=== PATIENT | female | born 1930 | race Caucasian/White ===

== ENCOUNTER 2019-08-30 06:34 | Inpatient (IN) | payer MEDICARE ==
[~2019-08-30] VITALS: Ht 165.1 cm; Wt 74.8 kg
--- NOTE | 2019-08-30 06:39 | Emergency Room Report ---
History of Present Illness General Chief Complaint: Behavioral Complaint Source: Patient Present Illness HPI Patient was brought by paramedics. She was upset because her son had been drinking alcohol. She complained to them of chest pain. A 12-lead was performed in the field. She has a history of atrial fibrillation. The patient is denying chest pain at this time. She does complain of back pain. She says this is a chronic problem. It is aching. She will not quantify how severe the pain is. She seems to have improvement with movement. She denies any extremity numbness. Patient is quite anxious and concerned about her son. She wants to immediately make a phone call to have someone check on him because he is drinking alcohol. She states this is a chronic and recurring problem -her son's alcohol abuse. Apparently she was admitted for 1 day at [facility] last week. She said it was a similar problem. She is uncertain of what they found. Patient has a history of hypertension, high cholesterol and atrial fibrillation. No fevers, chills, sore throat, palpitations, nausea, vomiting, diarrhea, dysuria, abdominal pain, shortness of breath, rashes, visual changes, dizziness , headache. Allergies: Coded Allergies: No Known Allergies (Unverified , 08/30/19) COVID-19 Screening Contact w/high risk pt: No Experienced COVID-19 symptoms?: No COVID-19 Testing performed PRODUCT MARKETING ANALYST: No Patient History Past Medical History: see triage record Social History: Denies: smoking Social History Narrative lives with son Reviewed Nursing Documentation: PMH: Agreed; PSxH: Agreed Nursing Documentation-PM Past Medical History: No History, Except For Hx Hypertension: Yes Review of Systems All Other Systems: negative except mentioned in HPI Physical Exam Vital Signs Date Time Temp Pulse Resp B/P (MAP) Pulse Ox O2 Delivery O2 Flow Rate FiO2 08/30/19 06:27 95.0 80 20 184/86 (118) 97 Room Air Sp02 EP Interpretation: reviewed, normal General Appearance: alert, non-toxic, mild distress - Anxious and agitated Head: normocephalic Eyes: bilateral eye normal inspection, bilateral eye PERRL, bilateral eye EOMI ENT: moist mucus membranes Neck: supple Respiratory: chest non-tender, lungs clear, normal breath sounds Cardiovascular #1: regular rate, rhythm, edema - Bilateral lower extremities trace Cardiovascular #2: 2+ radial (R) Gastrointestinal: normal inspection, normal bowel sounds, non tender, no mass, non-distended Musculoskeletal: normal range of motion, no calf tenderness Neurologic: alert, oriented x3, grossly normal Psychiatric: anxious - And slightly agitated Skin: warm/dry, other - Erythema and venous disease lower extremities bilaterally Medical Decision Making Diagnostic Impression: Primary Impression: Chest pain Qualified Codes: R07.89 - Other chest pain Additional Impression: Behavioral change ER Course Patient presents with chest pain and agitation from social situation. Differential includes acute myocardial infarction, unstable angina, anxiety, GERD amongst others. Patient evaluated EKG, chest x-ray and labs. Patient treated with a small dose of Ativan. Patient placed on administrative and program specialist. EKG without injury. Chest x-ray senile chest. No infiltrates. Normal white count. CMP essentially normal with minimally low sodium. Urinalysis clear. Attempting to determine what meds she is on for further treatment. 834 Metoprolol is held as her heart rate is 55. She does take aspirin. Lovenox is held at this time also. Patient improved with treatment with a small dose of Ativan. Sleepy. Complex presentation in patient with possible comorbidities merits observation for possible coronary syndrome. Consider social service consult regarding safety at home. Last Vital Signs Date Time Temp Pulse Resp B/P (MAP) Pulse Ox O2 Delivery O2 Flow Rate FiO2 08/30/19 06:50 80 20 Room Air 08/30/19 06:50 97.3 157/71 97 EKG Diagnostic Results Rate: normal Rhythm: NSR ST Segments: no acute changes - Left atrial enlargement and left ventricular hypertrophy Rhythm Strip Diag. Results EP Interpretation: yes Rhythm: NSR, no PVC's, no ectopy Chest X-Ray Diagnostic Results Chest X-Ray Diagnostic Results : Chest X-Ray Ordered: Yes # of Views/Limited/Complete: 1 View Indication: Chest Pain EP Interpretation: Yes Interpretation: no effusion, no pneumothorax, other - Increase sterling, cardiomegaly and axillary dissection clips Impression: Other Electronically Signed by: Electronically signed by Mark Tavarez MD Last Vital Signs Date Time Temp Pulse Resp B/P (MAP) Pulse Ox O2 Delivery O2 Flow Rate FiO2 08/30/19 16:00 96.9 68 18 124/79 (94) 98 08/30/19 12:22 Room Air Status: improved Disposition: PLACE IN OBSERVATION Condition: Serious Mark Tavarez MD 15, 2020 06:39
[2019-08-30] MEDS ORDERED: LORazepam Inj 2mg/ml 1ml IV ONE (06:45)
[2019-08-30 06:50] VITALS: BP 157/71
[2019-08-30 07:07] LABS: INR 0.9 (0.9-1.1)
[2019-08-30 07:08] LABS: BASOPHILS % (AUTO) 1.5 % (0.0-2.0); EOSINOPHILS % (AUTO) 4.9 % (0.0-3.0); HEMATOCRIT 43.6 % (37.0-47.0); HEMOGLOBIN 14.5 G/DL (12.0-16.0); LYMPHOCYTES % (AUTO) 41.6 % (20.0-45.0); MEAN CORPUSCULAR VOLUME 96 FL (80-99); MONOCYTES % (AUTO) 12.8 % (1.0-10.0); NEUTROPHILS % (AUTO) 39.3 % (45.0-75.0); PLATELET COUNT 205 K/UL (150-450); RED BLOOD COUNT 4.55 M/UL (4.20-5.40); RED CELL DISTRIBUTION WIDTH 11.7 % (11.6-14.8); WHITE BLOOD COUNT 6.7 K/UL (4.8-10.8)
[2019-08-30 07:09] LABS: ANION GAP 8 mmol/L (5-15); BLOOD UREA NITROGEN 18 mg/dL (7-18); CARBON DIOXIDE 25 MMOL/L (21-32); CHLORIDE 99 MMOL/L (98-107); POTASSIUM 4.1 MMOL/L (3.5-5.1); SODIUM 132 MMOL/L (136-145)
[2019-08-30 07:20] LABS: ALANINE AMINOTRANSFERASE 22 U/L (12-78); ALBUMIN 3.4 G/DL (3.4-5.0); ALKALINE PHOSPHATASE 45 U/L (46-116); ASPARTATE AMINO TRANSFERASE 17 U/L (15-37); BILIRUBIN,TOTAL 0.4 MG/DL (0.2-1.0); CREATINE KINASE 29 U/L (26-308)
[2019-08-30 08:28] LABS: APPEARANCE,URINE CLEAR; BILIRUBIN, URINE NEGATIVE (NEGATIVE); COLOR,URINE PALE YELLOW; GLUCOSE, URINE (UA) NEGATIVE (NEGATIVE); KETONES,URINE NEGATIVE (NEGATIVE); LEUKOCYTE ESTERASE ,URINE NEGATIVE (NEGATIVE); NITRITE,URINE NEGATIVE (NEGATIVE); PH,URINE 5 (4.5-8.0); PROTEIN,URINE NEGATIVE (NEGATIVE); UROBILINOGEN,URINE NORMAL MG/DL (0.0-1.0)
[2019-08-30] MEDS ORDERED: ASPIRIN81 MG ORAL (08:40)
[2019-08-30] MEDS ORDERED: LEVOTHYROXINE75 MCG ORAL (08:40)
[2019-08-30] MEDS ORDERED: HYDRALAZINE HCL10 MG ORAL (08:40)
[2019-08-30] MEDS ORDERED: METOPROLOL TART25 MG ORAL (08:40)
[2019-08-30] MEDS ORDERED: statin PO (08:40)
[2019-08-30 08:45] VITALS: BP 161/75
--- NOTE | 2019-08-30 14:27 | Diagnostic Imaging Report ---
Indication: Chest pain Technique: One view of the chest Comparison: none Findings: Mild interstitial prominence is probably on the basis of senescent changes. Surgical clips are seen in the right axilla and left lower lateral chest. No focal infiltrates. The heart size is normal. The pleural spaces are grossly clear. Impression: No definite acute process
[2019-08-30 16:00] VITALS: BP 124/79
[2019-08-30 20:00] VITALS: BP 158/80
[2019-08-30] MEDS ORDERED: HYDROcodone/Acetamin 5/325 tab ORAL PRN (20:45)
[2019-08-30] MEDS: Heparin 5000 units/ml inj SUBQ SCH (21:12)
[2019-08-31] VITALS: BP 142/77
[2019-08-31 04:00] VITALS: BP 161/73
[2019-08-31] MEDS ORDERED: Levothyroxine 25mcg tab ORAL SCH (06:30)
--- NOTE | 2019-08-31 06:45 | Consultation ---
DATE OF CONSULTATION: 08/30/2019 CARDIOLOGY CONSULTATION CONSULTING PHYSICIAN: Mark Henry M.D. REASON FOR ADMISSION: Chest pain in the setting of known coronary artery disease. HISTORY OF PRESENT ILLNESS: This is an 88-year-old white female. She lives at home with her son. She states that he has had significant problems of late due to alcoholism and marital difficulties with divorce. He was drunk and this morning, which led her to feel quite stress and developed episodes of chest pain. She came to the emergency room for evaluation. In the emergency room, she was noted to have a normal troponin level and her electrocardiogram, which I have reviewed revealed sinus rhythm with minimal voltage for left ventricular hypertrophy and nonspecific ST changes. The patient states that other than the events today, she has been in her usual state of good health with no chest pain. PAST MEDICAL HISTORY: Includes coronary artery disease with history of coronary stents, [id number] carotid stenosis bilaterally, history of nonsustained supraventricular tachyarrhythmias, degenerative aortic valve disease with mild sclerosis, mild pulmonary hypertension, vitamin D deficiency, hypothyroidism, hypertension, degenerative disk disease, osteoarthritis, hyperlipidemia, breast cancer with left mastectomy. MEDICATIONS: Reviewed and reconciled. ALLERGIES: Include amlodipine. SOCIAL HISTORY: Negative for smoking, alcohol, or substance abuse. REVIEW OF SYSTEMS: Outpatient studies in 2018 included a myocardial perfusion scan revealing less than 10% likelihood of flow-limiting disease with normal ejection fraction. Echocardiogram revealed normal ejection fraction fraction, aortic sclerosis, and mild pulmonary hypertension with mild tricuspid regurgitation. patch revealed less than 2 minutes of atrial arrhythmias. Carotid duplex revealed less than 50% stenosis bilaterally. CT angio revealed in 2017 revealed less than 50% stenosis of coronary arteries with high calcium score. PHYSICAL EXAMINATION: VITAL SIGNS: Blood pressure 184/86, heart rate 80, respiratory rate 20 in the emergency room. Subsequent blood pressure 158/68, heart rate 81, respiratory rate 20. HEENT: Conjunctivae are pink. Oropharynx clear. NECK: Supple. No bruits. No jugular venous distention. No thyromegaly. LUNGS: Clear. CARDIAC: Left breast mastectomy scar clean. CARDIAC: Regular rhythm and rate. Normal S1, S2 with a 1/6 systolic murmur at the lower left sternal border. ABDOMEN: Soft and nontender. EXTREMITIES: Without edema. NEUROLOGIC: Nonfocal. LABORATORY AND DIAGNOSTIC DATA: White count 6.7, hemoglobin 14.5. Urinalysis, no active sediment. Sodium 132, potassium 4.1, bicarb 25, BUN 18, creatinine 1, troponin 0, and pro-natriuretic peptide 576. Chest x-ray with no acute process. IMPRESSION: 1. Anginal episode precipitated by stress. 2. History of coronary stent with no signs of flow-limiting coronary disease based on [address] angiogram of the coronaries. 3. Hypertensive heart disease with elevated blood pressure. 4. Acute on chronic diastolic congestive heart failure. 5. History of hyperlipidemia. 6. History of hypothyroidism. 7. Degenerative aortic valve disease. 8. Mild pulmonary hypertension. PLAN: 1. Cardiac monitoring. 2. Serial troponin levels. 3. Titrate antihypertensives and antianginal regimen. 4. Continue anti-platelet therapy and statin drugs. 5. Check thyroid function. 6. Medical management unless clinical parameters deteriorate with recurring chest pressure that is unprovoked. Mark Henry M.D. DR: JESSE JOB#: [id number] CC:
[2019-08-31 07:20] LABS: BASOPHILS % (AUTO) 1.7 % (0.0-2.0); EOSINOPHILS % (AUTO) 5.2 % (0.0-3.0); HEMATOCRIT 42.9 % (37.0-47.0); HEMOGLOBIN 13.8 G/DL (12.0-16.0); LYMPHOCYTES % (AUTO) 35.2 % (20.0-45.0); MEAN CORPUSCULAR VOLUME 97 FL (80-99); MONOCYTES % (AUTO) 13.4 % (1.0-10.0); NEUTROPHILS % (AUTO) 44.4 % (45.0-75.0); PLATELET COUNT 197 K/UL (150-450); RED BLOOD COUNT 4.43 M/UL (4.20-5.40); WHITE BLOOD COUNT 5.9 K/UL (4.8-10.8)
[2019-08-31 08:00] VITALS: BP 164/84
[2019-08-31] MEDS ORDERED: Aspirin Baby 81mg ORAL SCH (09:00)
[2019-08-31] MEDS ORDERED: Lisinopril 2.5mg tab ORAL SCH (09:00)
[2019-08-31] MEDS: Heparin 5000 units/ml inj SUBQ SCH (09:11)
[2019-08-31 09:49] LABS: ALANINE AMINOTRANSFERASE 16 U/L (12-78); ALBUMIN 3.2 G/DL (3.4-5.0); ALBUMIN/GLOBULIN RATIO 1.1 (1.0-2.7); ALKALINE PHOSPHATASE 43 U/L (46-116); ANION GAP 6 mmol/L (5-15); ASPARTATE AMINO TRANSFERASE 17 U/L (15-37); BILIRUBIN,TOTAL 0.4 MG/DL (0.2-1.0); BLOOD UREA NITROGEN 18 mg/dL (7-18); CALCIUM 8.5 MG/DL (8.5-10.1); CARBON DIOXIDE 28 MMOL/L (21-32); CHLORIDE 101 MMOL/L (98-107); CREATININE 0.9 MG/DL (0.55-1.30); POTASSIUM 4.4 MMOL/L (3.5-5.1); SODIUM 135 MMOL/L (136-145)
[2019-08-31 12:00] VITALS: BP 131/76
--- NOTE | 2019-08-31 16:14 | History and Physical Report ---
DATE OF ADMISSION: 08/30/2019 CHIEF COMPLAINT: Chest pain. HISTORY OF PRESENT ILLNESS: The patient is a pleasant 88-year-old female. She has a history of hypertension, hypothyroidism, "heart problems" who presented with complaints of chest pain and shortness of breath. According to the patient, she has been under tremendous amount of stress from her son who is apparently alcoholic. She developed chest pain and shortness of breath and called paramedics. On evaluation in the emergency room, her troponin was negative. She was noted to be hyponatremic. She had unremarkable chest x-ray. In light of her chest pain, she was admitted for further evaluation and care. PAST MEDICAL HISTORY: As above. PAST SURGICAL HISTORY: None. CURRENT MEDICATIONS: Reconciled and reviewed. ALLERGIES: None. FAMILY HISTORY: None. SOCIAL HISTORY: Negative for tobacco, ethanol, or drugs. REVIEW OF SYSTEMS: GENERAL: No fevers or chills. HEENT: No headaches or visual changes. CARDIOPULMONARY: Positive chest pain. Mild shortness of breath. GASTROINTESTINAL: No nausea or vomiting. GENITOURINARY: No urgency or frequency. MUSCULOSKELETAL: No joint pain or swelling. NEUROLOGIC: No history of seizures. PHYSICAL EXAMINATION: VITAL SIGNS: Temperature 97.5, pulse 67, respirations 18, and blood pressure 164/84. GENERAL: The patient is well developed, no apparent distress. Awake, alert, and oriented x4. NECK: Supple. HEART: Regular rate and rhythm. LUNGS: Clear. ABDOMEN: Soft, nontender, and nondistended. EXTREMITIES: Without clubbing, cyanosis, or edema. LABORATORY DATA: Sodium 132, potassium 4.1, chloride 99, bicarb 25, BUN 18, creatinine 1. Troponins negative x2. ASSESSMENT: This is a pleasant female with a history of hypertension, "heart problems", hypothyroidism admitted with complaints of chest pain, possibly secondary to anxiety, but cannot rule out underlying acute coronary syndrome. PLAN: 1. Cardiology consultation. 2. Check a venous duplex of the legs. 3. Prn anxiolytics. 4. Titrate antihypertensive regimen. 5. Plan of care will be determined after discussing with consulting physicians. 6. Review of pending tests. Lisandro Martinez M.D. DR: Dung JOB#: [id number] CC:
--- NOTE | 2019-09-01 01:14 | Progress Note ---
DATE: 08/31/2019 CARDIOLOGY PROGRESS NOTE SUBJECTIVE: The patient has not had any recurring chest pain since admission. She is convinced that it was precipitated by stress due to her son drinking and aggravated behavior. Her monitored rhythm sinus with rare atrial ectopy. An echocardiogram performed revealed normal ejection fraction, mild pulmonary hypertension, and mild degenerative valve disease. PHYSICAL EXAMINATION: VITAL SIGNS: Blood pressure 164/84 this morning, now 131/76, heart rate 65, respiratory rate 20. LUNGS: Clear. NECK: Jugular venous pressure normal. CARDIAC: Regular rhythm and rate. Normal S1, S2 with a 1/6 systolic murmur at the apex. ABDOMEN: Soft, nontender. EXTREMITIES: With no pitting edema. LABORATORY DATA: Troponin negative. IMPRESSION: 1. Anginal episode in the setting of coronary artery disease precipitated by aggravation and stress. Stable clinical parameters at this time. 2. Hypertension, somewhat labile, but improved. 3. Diastolic dysfunction and degenerative valve disease with compensated diastolic congestive heart failure. 4. Mild pulmonary hypertension. PLAN: 1. Stable for outpatient followup. 2. Continue current medication regimen. 3. Further blood pressure optimization may be considered as an outpatient. Patient's medications and care plan were reviewed in detail with patient. She will follow up in my office within 10 days' time. She will return to the hospital should any recurring chest pain unresponsive to nitroglycerin x1 occurs. Mark Henry M.D. DR: MARTHA JOB#: [id number] CC:
--- NOTE | 2019-09-03 21:46 | CDS Physician Query ---
Clarification is required for compliance, coding accuracy, and to reflect severity of illness for this patient. Dear Dr. Lisandro Martinez MD Date: 09/03/2019 CDI/CDS: Rod Flaherty The findings below have been reported on this patient's medical record: 88-year-old female has a history of hypertension, hypothyroidism, "heart problems" who presented with complaints of chest pain and shortness of breath. According to the patient, she has been under tremendous amount of stress. [ H&P Lisandro Martinez M.D. 08/31/19 ] ASSESSMENT: Chest pain possibly secondary to anxiety, history of hypertension, "heart problems", hypothyroidism admitted with complaints of possibly secondary to anxiety, cannot rule out underlying acute coronary syndrome. Lab Value/Radiographic finding of: Sodium level (08/29) : 132 MMOL/L [136-145] Please Clarify the diagnosis associated with this finding: Diagnosis: [x ] Hyponatremia [ ] Other [ ] Finding is not significant Present on Admission: [x ] Yes [ ] No [ ] Clinically Undetermined Physician signature Date Please also document in your Progress Notes and/or Discharge Summary and indicate if the condition was present on admission. AVANID
--- NOTE | 2019-09-04 14:43 | Discharge Summary ---
Discharge Summary Discharge Summary _ DATE OF ADMISSION: 08/30/2019 DATE OF DISCHARGE: 08/31/2019 DISCHARGED BY: Dr. Martinez REASON FOR ADMISSION: 88 years old female with past medical history of hypertension, hypercholesterolemia, angina, atrial fibrillation, was brought by paramedics, complaining of chest pain. Patient apparently was upset that her son had been drinking alcohol. Upon arrival patient denied chest pain. No shortness of breath . She reported aching chronic back pain , but no numbness in the extremity. Upon evaluation blood pressure 184/86 , pulse oximetry was stable on room air. Chest x-ray revealed no evidence of infiltrate . EKG revealed sinus rhythm; no acute ischemic changes. Laboratory work-up revealed no leukocytosis. Urinalysis revealed no evidence of UTI. Patient received small dose of Ativan with significant improvement in her condition. Patient subsequently admitted to telemetry floor for further management. CONSULTANTS: marketing proposal specialist Dr. Henry [facility]SE: Patient admitted to telemetry floor patient and started on beta-blockade and aspirin. Blood pressure was managed with beta-mar and RAJESH inhibitor. Statin continued. DVT prophylaxis provided. Pain management was addressed as needed. Echocardiogram demonstrated preserved ejection fraction of 60% with no evidence of left ventricular hypertrophy. No evidence of wall motion abnormality. Right ventricular systolic pressure of 13. Serial troponin were negative. EKG revealed no acute ischemic changes. Patient was ruled out for acute myocardial infarction. Antihypertensive and antianginal titrated. Statin therapy continued. Sodium up to 135. Chest pain resolved. Patient clinically stabilized and was ready to go home. Due to rapid and unexpected improvement in patient's condition, the patient was discharged in one day. FINAL DIAGNOSES: Anginal episode, precipitated by stress Hyponatremia -resolved History of coronary artery disease with a stent placement (no signs of flow- limiting coronary disease Hypertension with initial hypertensive urgency Hypothyroidism Hyperlipidemia DISCHARGE MEDICATIONS: See Medication Reconciliation list. DISCHARGE INSTRUCTIONS: Patient was discharged home. Follow-up with her primary care provider in 1 week. I have been assigned to dictate discharge summary for this account. I was not involved in the patient's management. Angelina Carmona NP Sep 04, 2019 14:43
== END 2019-08-31 16:41 | disposition home or self-care (01) | DRG 302 ==
LOC: EDBD 06:34 → EMR 07:52 → 2E 08:15 → EDBEDREQ 09:28
DX: I25.118 Atherosclerotic heart disease of native coronary artery with other forms of angina pectoris (principal); I50.33 Acute on chronic diastolic (congestive) heart failure; E87.1 Hypo-osmolality and hyponatremia; I11.0 Hypertensive heart disease with heart failure; I27.20 Pulmonary hypertension, unspecified; Z95.5 Presence of coronary angioplasty implant and graft; E03.9 Hypothyroidism, unspecified; M19.90 Unspecified osteoarthritis, unspecified site; E78.5 Hyperlipidemia, unspecified; Z85.3 Personal history of malignant neoplasm of breast; Z90.12 Acquired absence of left breast and nipple; Z88.8 Allergy status to other drugs, medicaments and biological substances; I35.8 Other nonrheumatic aortic valve disorders; F41.9 Anxiety disorder, unspecified; I16.0 Hypertensive urgency
CPT/HCPCS: 36415; 71045; 80053; 81003; 82550; 82728; 83615; 83880; 84443; 84484; 85025; 85610; 85730; 86140; 93005; 93306; 96374; 99285